=== PATIENT | female | born 1960 | race Caucasian/White ===

== ENCOUNTER 2023-07-02 22:26 | Emergency (ER) | payer OTHER ==
--- OUTSIDE RECORDS SUMMARY | 2023-07-02 22:30 | XMS REPORT | Continuity of Care Document ---
Author Name Unknown Address [address] [facility]. [address] [place] [address] [facility] thconnect Address [address] [facility] 1 [address] [place] [address] Care Team Providers Care Front Office Attendant Name Role Phone [phone] Primary Care Physician Unavailab SASHA Guzman Attending Clinician Unavailable Tomek_T Attending Clinician Unavailable MOIRA HEBERT Attending Clinician Unavailable Tomek_T Admitting Clinician Unavailable Payers Payer Name Policy Type Policy Number Effective Date Expirati on Date Source [place] POS [id number] 2015 00:00:00 [facility] (EPO) [id number] [facility] 3 (HMO) [id number] Problems Condition Name Condition Details Condition Category Status Onset Date Resolution Date Last Treatment Date Treating Clinician Comments Source Hyperlipid emia Hyperlipid emia Problem Active 2016-05 00:00: 00 [facility] Bipolar disorder Bipolar Disorder Problem Active 2016-05 00:00: 00 [facility] Lymphedema Lymphedema Problem Active 2016-05 00:00: 00 [facility] Allergies, Adverse Reactions, Alerts Allergy Name Allergy Type Status Severity Reaction(s) Onset Date Inactive Date Treating Clinician Comments Source codeine DA Active U 2018-05 0-15 00:00: 00 [facility] [place] Codeine Allergy to substanc e Active Dizziness [facility] Social History Smoking Status Start Date Stop Date Source Never Smoker [facility] Medications Ordered Medication Name Filled Medication Name Start Date Stop Date Current Medication? Ordering Clinician Indication Dosage Frequency Signature (SIG) Comments Components Source olanzapine 10 mg tablet TAKE ONE (1) TABLET EVERY DAY BY ORAL ROUTE AT BEDTIME FOR 90 DAYS. olanzapine 10 mg tablet TAKE ONE (1) TABLET EVERY DAY BY ORAL ROUTE AT BEDTIME FOR 90 DAYS. 2-17 00:00: 00 No olanzapine 10 mg tablet TAKE ONE (1) TABLET EVERY DAY BY ORAL ROUTE AT BEDTIME FOR 90 DAYS. [facility] doxycycline monohydrate 100 mg tablet Take 1 tablet twice a day by oral route for 10 days. doxycycline monohydrate 100 mg tablet Take 1 tablet twice a day by oral route for 10 days. 2018-05 0 00:00: 00 No doxycyclin e monohydrat e 100 mg tablet Take 1 tablet twice a day by oral route for 10 days. [facility] atorvastati n 10 mg tablet Take 1 tablet every day by oral route for 90 days. atorvastati n 10 mg tablet Take 1 tablet every day by oral route for 90 days. No 1 Q1D atorvastat in 10 mg tablet Take 1 tablet every day by oral route for 90 days. [facility] olanzapine 10 mg tablet Take 1 tablet every day by oral route at bedtime for 90 days. olanzapine 10 mg tablet Take 1 tablet every day by oral route at bedtime for 90 days. No 1 Q1D olanzapine 10 mg tablet Take 1 tablet every day by oral route at bedtime for 90 days. [facility] atorvastati n 10 mg tablet TAKE ONE (1) TABLET EVERY DAY BY ORAL ROUTE FOR 90 DAYS. atorvastati n 10 mg tablet TAKE ONE (1) TABLET EVERY DAY BY ORAL ROUTE FOR 90 DAYS. No atorvastat in 10 mg tablet TAKE ONE (1) TABLET EVERY DAY BY ORAL ROUTE FOR 90 DAYS. [facility] cyclobenzap rine 5 mg tablet Take 1 tablet every day by oral route at bedtime for 5 days. cyclobenzap rine 5 mg tablet Take 1 tablet every day by oral route at bedtime for 5 days. No 1 Q1D cyclobenza katelyn 5 mg tablet Take 1 tablet every day by oral route at bedtime for 5 days. [facility] olanzapine 10 mg tablet TAKE ONE (1) TABLET EVERY DAY BY ORAL ROUTE AT BEDTIME FOR 90 DAYS. olanzapine 10 mg tablet TAKE ONE (1) TABLET EVERY DAY BY ORAL ROUTE AT BEDTIME FOR 90 DAYS. No olanzapine 10 mg tablet TAKE ONE (1) TABLET EVERY DAY BY ORAL ROUTE AT BEDTIME FOR 90 DAYS. [facility] rosuvastati n 10 mg tablet Take 1 tablet every day by oral route for 90 days. rosuvastati n 10 mg tablet Take 1 tablet every day by oral route for 90 days. No 1 Q1D rosuvastat in 10 mg tablet Take 1 tablet every day by oral route for 90 days. [facility] simvastatin 20 mg tablet TAKE 1 TABLET EVERY DAY BY ORAL ROUTE FOR 90 DAYS. simvastatin 20 mg tablet TAKE 1 TABLET EVERY DAY BY ORAL ROUTE FOR 90 DAYS. No simvastati n 20 mg tablet TAKE 1 TABLET EVERY DAY BY ORAL ROUTE FOR 90 DAYS. [facility] ibuprofen 800 mg tablet ibuprofen 800 mg tablet No ibuprofen 800 mg tablet [facility] lamotrigine 100 mg tablet Take 1 tablet every day by oral route. lamotrigine 100 mg tablet Take 1 tablet every day by oral route. No 1 Q1D lamotrigin e 100 mg tablet Take 1 tablet every day by oral route. [facility] Vital Signs Vital Name Observation Time Observation Value Comments S ource BP Systolic 2023-07-01 00:00:00 158 mm[Hg] [facility] Body Weight 2023-07-01 00:00:00 3168 [oz_av] [facility] BMI (Body Mass Index) 2023-07-01 00:00:00 31 kg/m2 [facility] BP Diastolic 2023-07-01 00:00:00 113 mm[Hg] [facility] Height 2023-07-01 00:00:00 67 [in_i] [facility] BP Diastolic 2022-11-02 00:00:00 84 mm[Hg] [facility] BP Systolic 2022-11-02 00:00:00 131 mm[Hg] [facility] Body Weight 2022-11-02 00:00:00 3219 [oz_av] [facility] BP Diastolic 2022-08-30 00:00:00 83 mm[Hg] [facility] BP Systolic 2022-08-30 00:00:00 122 mm[Hg] [facility] Body Weight 2022-08-30 00:00:00 3217 [oz_av] [facility] BP Diastolic 2019-03-14 00:00:00 94 mm[Hg] [facility] Height 2019-03-14 00:00:00 65 [in_i] [facility] BMI (Body Mass Index) 2019-03-14 00:00:00 31.1 kg/m2 [facility] BP Systolic 2019-03-14 00:00:00 144 mm[Hg] [facility] Body Weight 2019-03-14 00:00:00 187 [lb_av] [facility] BP Diastolic 2019-02-27 00:00:00 72 mm[Hg] [facility] Height 2019-02-27 00:00:00 65 [in_i] [facility] BMI (Body Mass Index) 2019-02-27 00:00:00 31.6 kg/m2 [facility] BP Systolic 2019-02-27 00:00:00 138 mm[Hg] [facility] Body Weight 2019-02-27 00:00:00 190 [lb_av] [facility] Procedures Procedure Date / Time Performed Performing Clinician Source X-RAY OF CHEST 2 VIEW 2019-03-14 00:00:00 [facility] X-RAY OF CHEST 2 VIEW 2019-03-01 00:00:00 [facility] Colonoscopy 2010-05-15 00:00:00 [facility] 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) 2007-05-15 00:00:00 [facility] Hysterectomy (Total) 2007-05-15 00:00:00 [facility] Caesarean Section 1985-05-15 00:00:00 [facility] Hysterectomy [facility] Delivery [facility] Plan of Care Planned Activity Planned Date Details Comments Source Diagnostic Test Pending 2022-08-30 00:00:00 lipid panel w/ direct LDL, serum [code = lipid panel w/ direct LDL, serum] [facility] Diagnostic Test Pending 2022-08-30 00:00:00 CBC w/ auto diff [code = CBC w/ auto diff] [facility] Diagnostic Test Pending 2022-08-30 00:00:00 HbA1c (hemoglobin A1c), blood [code = HbA1c (hemoglobin A1c), blood] [facility] Diagnostic Test Pending 2022-08-30 00:00:00 CMP, serum or plasma [code = CMP, serum or plasma] [facility] Diagnostic Test Pending 2019-03-14 00:00:00 CBC w/ auto diff [code = CBC w/ auto diff] [facility] Encounters Start Date/Time End Date/Time Encounter Type Admission Type Attending [facility] Facility Care Department Encounter ID Source 2021-06-17 17:58:03 Outpatient KATERINE GARCIAS [id number] MD Nixon baird 2021-06-17 17:58:03 Outpatient KATERINE GARCIAS [id number] MD Nixon baird 2023-07-01 21:44:00 2023-07-02 00:47:00 Emergency ER CATSASHA [facility]CG[facility]AN [facility] [id number] [facility] 2023-07-01 11:57:00 2023-07-01 16:14:00 emergency [facility] [id number] 2023-07-01 00:00:00 2023-07-01 00:00:00 Outpatient Tomek_T [facility] [id number] [facility] 2023-07-01 00:00:00 2023-07-01 00:00:00 Cristopher Abdi MD: [address] [place] [address], [address], [place] [address] , Ph. [facility] [id number] [facility] 2022-11-02 00:00:00 2022-11-02 00:00:00 Outpatient Tomek_T [facility] [id number] [facility] 2022-11-02 00:00:00 2022-11-02 00:00:00 Outpatient Tomek_T [facility] [id number] [facility] 2022-11-02 00:00:00 2022-11-02 00:00:00 Moira Hebert MD: [address], [address], [place] [address] , Ph. [facility] [id number] [facility] 2022-08-30 08:47:00 2022-08-30 08:47:00 Outpatient DIANN HEBERT [facility]A [facility] [id number] [facility] 2022-08-30 00:00:00 2022-08-30 00:00:00 Outpatient Tomek_T [facility] [id number] [facility] 2022-08-30 00:00:00 2022-08-30 00:00:00 Moira Hebert MD: [address] [facility], [address], [place] [address] , Ph. [facility] [id number] [facility] 2022-08-23 00:00:00 2022-08-23 00:00:00 Outpatient Tomek_T [facility] [id number] [facility] 2022-05-10 00:00:00 2022-05-10 00:00:00 Outpatient Tomek_T [facility] [id number] [facility] 2019-03-14 00:00:00 2019-03-14 00:00:00 Russell Aleman MD: [address], [address], [place] [address] , Ph. [facility] [id number] [facility] 2019-02-27 00:00:00 2019-02-27 00:00:00 Russell Aleman MD: [address], [address], [place] [address] , Ph. [facility] [place] - [facility] [id number] [facility] e Results Test Description Test Time Test Comments Results Result Co mments Source [facility] Auto Differential panel - [id number] 03:55:00 * Test Item Value Reference Range Interpretation Comme nts white blood cell count (test code = white blood cell count) 20.4 thousand/uL 3.8-10.8 H red blood cell count (test code = red blood cell count) 4.14 million/uL 3.80-5.10 hemoglobin (test code = hemoglobin) 12.1 g/dL 11.7-15.5 hematocrit (test code = hematocrit) 35.8 % 35.0-45.0 MCV (test code = MCV) 86.5 fL 80.0-100.0 MCH (test code = MCH) 29.2 pg 27.0-33.0 MCHC (test code = MCHC) 33.8 g/dL 32.0-36.0 RDW (test code = RDW) 13.1 % 11.0-15.0 platelet count (test code = platelet count) 212 thousand/uL 140-400 MPV (test code = MPV) 10.6 fL 7.5-12.5 [facility] - [id number] 03:55:00* Test Item Value Reference Range Interpretation Comme nts absolute neutrophils (test code = absolute neutrophils) 58859 cells/uL 5461-8885 H absolute lymphocytes (test code = absolute lymphocytes) 2652 cells/uL 850-3900 absolute monocytes (test cod e = absolute monocytes) 2652 cells/uL 200-950 H absolute eosinophils (test code = absolute eosinophils) 0 cells/uL 15-500 L absolute basophils (test cod e = absolute basophils) 0 cells/uL 0-200 neutrophils (test code = neutrophils) 74.0 % lymphocytes (test code = lymphocytes) 13.0 % monocytes (test code = monocytes) 13.0 % eosinophils (test code = eosinophils) 0 % basophils (test code = basophils) 0 % note (test code = note) [facility] (THROAT) [id number] 21:16:00* Test Item Value Reference Range Interpretation Comme nts AG STREP GROUP A (THROAT) POC (test code = STREPAPOC) NEGATIVE FOR STREP A NEGATIVE - XR CHEST 2 [id number] 16:54:00Patient Name: ADITYA WHITE Unit No: [id number] EXAMS: CPT CODE: [id number] XR CHEST 2 V 12641 STUDY: Chest radiograph HISTORY: Cough, fever. COMPARISON: None. TECHNIQUE: Frontal and lateral views of the chest. SITE: R16 FINDINGS: The cardiac silhouette is unremarkable. There is no focal consolidation, pleural effusion, or pneumothorax. No acute osseous abnormalities are identified. IMPRESSION: No radiographic evidence for acute pulmonary abnormality. at 1654 Reported and signed by: Yung Billings M.D. CC: Madhuri(ED) Fernando Technologist: Nydia Nixon Fluoro Time: DAP (Gy m2): Air Kerma (mGy): Trscr Dt/Tm: 02/26/2019 (1653) by:[email or web address] Electronic Signature Date/Time: 02/26/2019 (1653)Orig Print D/T: S: 02/26/2019 (8858) Name: ADITYA WHITE [facility] Phys: Madhuri Diehl [address] : 1960 Age: 58 Sex: [place] [address] Loc: NC.ERS Exam Date: 02/26/2019 Status: PRE ER PH: FAX: PAGE 1 Signed ReportURINALYSIS [id number] 16:47:00* Test Item Value Reference Range Interpretation Comme nts UA COLOR (test code = COLU) ASHLEY YELLOW A UA APPEARANCE (test code = APPU) CLEAR CLEAR UA GLUCOSE DIPSTICK (test code = DGLUU) NEGATIVE NEGATIVE UA BILIRUBIN DIPSTICK (test code = BILU) NEGATIVE NEGATIVE UA KETONE DIPSTICK (test cod e = KETU) 1+ NEGATIVE A UA SPECIFIC GRAVITY (test code = SGU) 1.021 1.005-1.025 N UA BLOOD DIPSTICK (test code = MAYANK) 1+ NEGATIVE A UA PH DIPSTICK (test code = HELENE) 6 5.0-8.0 UA PROTEIN DIPSTICK (test code = PROU) 1+ NEGATIVE A UA UROBILINOGEN DIPSTICK (test code = URO) 2.0 EU/dL 0.1-0.2 A UA NITRITE DIPSTICK (test code = GELY) NEGATIVE NEGATIVE UA LEUKOCYTE ESTERASE DIPSTICK (test code = LEUU) NEGATIVE NEGATIVE UA WBC (test code = WBCU) 0-2 /hpf 0-3 UA RBC (test code = RBCU) 11-20 /hpf 0-3 A UA EPITHELIAL CELLS (test code = EPIU) NONE SEEN /lpf UA BACTERIA (test code = BACU) RARE /HPF NEGATIVE UA HYALINE CAST (test code = HYALU) 2-5 /lpf NONE SEEN UA MUCUS (test code = MUCU) OCCASIONAL /lpf COMPREHENSIVE METABOLIC [id number] 16:19:00* Test Item Value Reference Range Interpretation Comme nts SODIUM (test code = NA) 135 mmol/L 135-145 N POTASSIUM (test code = K) 4.0 mmol/L 3.5-5.1 N CHLORIDE (test code = CL) 103 mmol/L 98-107 N CARBON DIOXIDE (test code = CO2) 25 mmol/L 21-32 N GLUCOSE (test code = GLU) 130 mg/dL 65-99 H BLOOD UREA NITROGEN (test code = BUN) 11 mg/dL 4-23 N GLOMERULAR FILTRATION RATE (test code = GFR) >=60 max estimate ml/min 60-115 N The estimated glomerular filtration rate is computed usingpatient race, age (>18), sex, and serum creatinine. If anyof the needed data elements are missing the Laboratory cannot compute an estimation of the glomerular filtration rate. CREATININE (test code = CREAT) 1.0 mg/dL 0.6-1.5 N BUN/CREATININE RATIO (test code = BUN/CREA) 11.0 12.0-20.0 L TOTAL PROTEIN (test code = PROT) 8.4 g/dL 6.4-8.2 H ALBUMIN (test code = ALB) 4.0 g/dL 3.4-5.0 N CALCIUM (test code = CA) 9.8 mg/dL 8.5-10.1 N BILIRUBIN TOTAL (test code = BILT) 0.8 mg/dL 0.2-1.2 N SGOT/AST (test code = AST) 115 U/L 15-37 H SGPT/ALT (test code = ALT) 152 U/L 6-50 H ALKALINE PHOSPHATASE (test code = ALKP) 122 U/L 45-117 H CBC W/AUTO [id number] 15:56:00* Test Item Value Reference Range Interpretation Comme nts WHITE BLOOD CELL (test code = WBC) 16.8 10 3/uL 4.5-11.0 H RED BLOOD CELL (test code = RBC) 4.62 10 6/uL 3.50-5.50 N HEMOGLOBIN (test code = HGB) 12.9 g/dL 12.0-16.0 N HEMATOCRIT (test code = HCT) 39.8 % 37.0-55.0 N MEAN CELL VOLUME (test code = MCV) 86 fL 81-102 N MEAN CELL HGB (test code = MCH) 27.9 pg 26.0-34.0 N MEAN CELL HGB CONCENTRATION (test code = MCHC) 32.4 % 31.0-37.0 N RED CELL DISTRIBUTION WIDTH (test code = RDW) 13.1 % 11.5-14.5 N PLATELET COUNT (test code = PLT) 233 10 3/uL 150-400 N MEAN PLATELET VOLUME (test code = MPV) 10.1 fl 9.0-12.6 N NEUTROPHIL % (test code = NT%) 81.9 % 33.0-76.0 H IMMATURE GRANULOCYTE % (test code = IG%) 0.7 % 0.0-1.0 N LYMPHOCYTE % (test code = LY%) 7.1 % 14.0-56.4 L MONOCYTE % (test code = MO%) 9.8 % 0.0-12.9 N EOSINOPHIL % (test code = EO%) 0.1 % 0.0-7.0 N BASOPHIL % (test code = BA%) 0.4 % 0-2.0 N NEUTROPHIL # (test code = NT#) 13.80 10 3/uL 1.5-7.0 H IMMATURE GRANULOCYTE # (test code = IG#) 0.110 x10 3/uL 0.000-0.100 H LYMPHOCYTE # (test code = LY#) 1.20 10 3/uL 1.50-4.00 L MONOCYTE # (test code = MO#) 1.64 10 3/uL 0.20-0.80 H EOSINOPHIL # (test code = EO#) 0.01 10 3/uL 0.0-0.5 N BASOPHIL # (test code = BA#) 0.06 10 3/uL 0.0-0.1 N LACTIC ACID [id number] 15:23:00* Test Item Value Reference Range Interpretation Comme nts LACTIC ACID POC (test code = LACTP) 0.76 mmol/L 0.36-1.70 N INFLUENZA A B [id number] 15:21:00* Test Item Value Reference Range Interpretation Comme nts INFLUENZA A POC (test code = INFLAAG) negative NEGATIVE INFLUENZA B POC (test code = INFLBAG) negative NEGATIVE Notes Date/Time Note Provider Source 2019-02-26 14:59:00 [id number] 9:00 [facility] ([facility])EMERGENCY PROVIDER REPORTREPORT#:[id number] REPORT STATUS: SignedDATE:02/26/19 TIME: 1458 PATIENT: ADITYA WHITE UNIT #: [id number]#: [id number] ROOM: BED:AGE: 58 SEX: F PCP PHYS: DOES_NOT KNOWSERVICE AUTHOR: Chana Waddell NP * ALL edits or amendments must be made on the electronic/computer document * HPI-Fever GeneralInitial Greet Date/Time 02/26/19 1443 PresentationChief Complaint Fever, currently, bodyaches)( Onset Occurred Gradual Free Text HPI NotesFree Text HPI [id number] female presents to ER with fever, body aches, chills for the last 2 days. Patient was seen in urgent care and had a negative flu swab was sent to the ED ER for evaluation. Patient does endorse a cough, congestion. Past Medical History - AdultStated Complaint BODYACHES/FEVERAllergiesCoded Allergies:codeine (rash 02/26/19) Physical Exam Vital SignsVital SignsFirst Documented: Result Date Time Pulse Ox 99 02/26 1453 B/P 135/106 02/26 1453 B/P Mean 115 02/26 1453 O2 Delivery Room air 02/26 1453 Temp 38.2 02/26 1453 Pulse 129 02/26 1453 Resp 17 02/26 1453 Last Documented: Result Date Time Pulse Ox 98 02/27 2108 B/P 129/75 02/27 2108 B/P Mean 93 02/27 2108 O2 Delivery Room air 02/27 2108 Temp 36.9 02/27 2108 Pulse 94 02/27 2108 Resp 16 02/27 2108 Review of Vital Signs Reviewed Focused PEGeneral/Const General/Const Awake, Alert, No acute distress, Well appearing, Well developed, Well hydrated, Well nourished, Cooperative, Not toxic appearingMS Head Head Atraumatic, NormocephalicEyes Eyes Atraumatic, PERRL, EOMI, No nystagmusEars/Nose/Throat Ears/Nose/Throat Atraumatic, Airway patent, Mucous membranes moist, Pharynx NL, No peritonsillar abscess, No pooling of secretions, No trismusMS Neck Neck Atraumatic, Supple, No meningismus, Full range of motion, No adenopathy,No swellingResp/Chest Respiratory/Chest Atraumatic, Breath sounds NL, Breath sounds = bilat, No respiratory distress, No rales, No rhonchi, No wheezing, No retractionsCardiovascular Cardiovascular Heart rate NL, Regular rhythm, Heart sounds NLAbdomen/GI Abdomen/GI Atraumatic, Soft, Non-tender, No guarding, No reboundMS Back Back Atraumatic, Inspection NL, Full range of motion, Painless range of motion, Non-tenderSkin Skin Atraumatic, Color NL, Warm, Dry, IntactNeurologic Neurologic Oriented X3, Speech NL, No motor deficits, No sensory deficits, CNII - XII intact Interpretation Diagnostics Lab Results InterpretationResultsLaboratory Tests 02/26/19 1500:[Embedded Image Not Available]Laboratory Tests: 02/26 1458 Other Body Source POC Nasal Influenza A (NEGATIVE) negative POC Nasal Influenza B (NEGATIVE) negative Urines Urine Color (YELLOW) ASHLEY H Urine Appearance (CLEAR) CLEAR Urine pH (5.0 - 8.0) 6 Ur Specific [place] (1.005 - 1.025) 1.021 Urine Protein (NEGATIVE) 1+ H Urine Glucose (UA) (NEGATIVE) NEGATIVE Urine Ketones (NEGATIVE) 1+ H Urine Blood (NEGATIVE) 1+ H Urine Nitrite (NEGATIVE) NEGATIVE Urine Bilirubin (NEGATIVE) NEGATIVE Urine Urobilinogen (0.1 - 0.2 EU/dL) 2.0 H Ur Leukocyte Esterase (NEGATIVE) NEGATIVE Urine RBC (0 - 3 /hpf) 11-20 H Urine WBC (0 - 3 /hpf) 0-2 Ur Epithelial Cells (/lpf) NONE SEEN Urine Bacteria (NEGATIVE /HPF) RARE Hyaline Casts (NONE SEEN /lpf) 2-5 Urine Mucus (/lpf) OCCASIONAL 02/26 02/26 1500 1514 Chemistry Sodium (135 - 145 mmol/L) 135 Potassium (3.5 - 5.1 mmol/L) 4.0 Chloride (98 - 107 mmol/L) 103 Carbon Dioxide (21 - 32 mmol/L) 25 BUN (4 - 23 mg/dL) 11 Creatinine (0.6 - 1.5 mg/dL) 1.0 Glomerular Filtr Rate (60 - 115 ml/min) >=60 max estimate BUN/Creatinine Ratio (12.0 - 20.0) 11.0 L Glucose (65 - 99 mg/dL) 130 H POC Lactic Acid (0.36 - 1.70 mmol/L) 0.76 Calcium (8.5 - 10.1 mg/dL) 9.8 Total Bilirubin (0.2 - 1.2 mg/dL) 0.8 AST (15 - 37 U/L) 115 H ALT (6 - 50 U/L) 152 H Total Alk Phosphatase (45 - 117 U/L) 122 H Total Protein (6.4 - 8.2 g/dL) 8.4 H Albumin (3.4 - 5.0 g/dL) 4.0 Hematology WBC (4.5 - 11.0 10 3/uL) 16.8 H RBC (3.50 - 5.50 10 6/uL) 4.62 Hgb (12.0 - 16.0 g/dL) 12.9 Hct (37.0 - 55.0 %) 39.8 MCV (81 - 102 fL) 86 MCH (26.0 - 34.0 pg) 27.9 MCHC (31.0 - 37.0 %) 32.4 RDW (11.5 - 14.5 %) 13.1 Plt Count (150 - 400 10 3/uL) 233 MPV (9.0 - 12.6 fl) 10.1 Neut % (Auto) (33.0 - 76.0 %) 81.9 H Lymph % (Auto) (14.0 - 56.4 %) 7.1 L [place] % (Auto) (0.0 - 12.9 %) 9.8 Eos % (Auto) (0.0 - 7.0 %) 0.1 Baso % (Auto) (0 - 2.0 %) 0.4 Neut # (Auto) (1.5 - 7.0 10 3/uL) 13.80 H Lymph # (Auto) (1.50 - 4.00 10 3/uL) 1.20 L [place] # (Auto) (0.20 - 0.80 10 3/uL) 1.64 H Eos # (Auto) (0.0 - 0.5 10 3/uL) 0.01 Baso # (Auto) (0.0 - 0.1 10 3/uL) 0.06 Immature Gran % (0.0 - 1.0 %) 0.7 02/26 2100 Serology Group A Strep Screen (NEGATIVE) NEGATIVE FOR STREP A Microbiology: Date/Time Procedure - Status Source Growth 02/26 2116 Group A Streptococcus Culture - ORD THROAT 02/26 1515 Blood Culture - RECD BLOOD 02/26 1500 Blood Culture - RECD BLOOD 02/26 1458 Group A Streptococcus Screen (EDGARDO) - ORD THROAT Recent Impressions:RADIOLOGY - XR CHEST 2 V 02/26 1530 Report Impression - Status: SIGNED Entered: 02/26/2019 1658 IMPRESSION: No radiographic evidence for acute pulmonary abnormality. Impression By: VivienRHJosse - Yung Billings M.D. Re-Evaluation MDM Free Text MDM NotesFree Text MDM NotesPt staffed with Dr. Strong Discussed with pt chest xray nothing acute Urine shows no infection Iv fluids and ibuprofen in er fever resolved HR decreased flu swab negative Re-Evaluation/Progress Fever Adult MDM NoteThe patient is resting comfortably and feels better, is alert and in no distress. On re-examination the patient does not appear toxic and has no meningeal signs, and there is no intractable vomiting, no respiratory distress and no apparent pain. Based on the history, exam, diagnostic testing (if any) and reassessment, the patient has no signs of meningitis, significant pneumonia,pyelonephritis, systemic immune response syndrome, sepsis or other acute seriousbacterial infections, or other significant pathology to warrant further testing,continued ED treatment, admission or specialist evaluation. The patient's vital signs have been stable. The patient's condition is stable and is appropriate fordischarge. The patient or caregiver will pursue further outpatient evaluation with the primary care physician or other designated or consulting physician as indicated in the discharge instructions. ED CourseMedication(s) OrderedMedication(s) Ordered:Central Nervous System Agents Sig/Westley Start time Last Medication Dose Route Stop Time Status Admin Ibuprofen 800 MG X1ED STA 02/26 1458 DC PO 02/26 145 Electrolytic, Caloric, And Emily Sig/[place] Start time Last Medication Dose Route Stop Time Status Admin Sodium Chloride 1,000 ML X1ED STA 02/26 1458 DC 02/26 IV 02/26 1557 1935 Patient Discharge Departure Vital Signs/ConditionVital SignsFirst Documented: Result Date Time Pulse Ox 99 02/26 1453 B/P 135/106 02/26 1453 B/P Mean 115 02/26 1453 O2 Delivery Room air 02/26 1453 Temp 38.2 02/26 1453 Pulse 129 02/26 145 Resp 17 02/26 1453 Last Documented: Result Date Time Pulse Ox 98 02/27 2108 B/P 129/75 02/27 2108 B/P Mean 93 02/27 2108 O2 Delivery Room air 02/27 2108 Temp 36.9 02/27 2108 Pulse 94 02/27 2108 Resp 16 02/27 2108 All vital signs available at the time of this entry have been reviewed. Condition Improved, Stable Clinical ImpressionClinical ImpressionPrimary Impression: Viral illness Disposition DecisionDischarge )( Discharged to Home Yes )( Time 2106 )( Date 02/26/19 Discharge/Care PlanCounseled Regarding Diagnosis, Lab results, Prescriptions, Need for follow-up, When to return to EDPrescriptionsibuprofenPrescriptions Reviewed Risks, Benefits Discharge NoteI have spoken with the patient and/or caregivers. I have explained the patient'scondition, diagnoses and treatment plan based on the information available to meat this time. I have answered the patient's and/or caregiver's questions and addressed any concerns. The patient and/or caregivers have as good an understanding of the patient's diagnosis, condition and treatment plan as can beexpected at this point. The vital signs have been stable. The patient's condition is stable and appropriate for discharge from the emergency department. The patient will pursue further outpatient evaluation with the primary care physician or other designated or consulting physician as outlined in the discharge instructions. The patient and/or caregivers are agreeable to this planof care and follow-up instructions have been explained in detail. The patient and/or caregivers have received these instructions in written format and have expressed an understanding of the discharge instructions. The patient and/or caregivers are aware that any significant change in condition or worsening of symptoms should prompt an immediate return to this or the closest emergency department or a call to 911. at 2148RPT #:[id number] OF REPORTEDEmergency department [id number]:59:[id number] ailable for patient [id number]:49:21 [facility] 2019-02-26 14:59:00 [id number] 9:00 [facility] ([facility])EMERGENCY PROVIDER REPORTREPORT#:[id number] REPORT STATUS: SignedDATE:02/26/19 TIME: 1458 PATIENT: ADITYA WHITE UNIT #: [id number]#: [id number] ROOM: BED:AGE: 58 SEX: F PCP PHYS: DOES_NOT KNOWSERVICE AUTHOR: Chana Waddell NP * ALL edits or amendments must be made on the electronic/computer document * Chana Waddell 02/26/19 1459:HPI-Fever PresentationChief Complaint Fever, currently, bodyaches)( Onset Occurred Gradual Free Text HPI NotesFree Text HPI [id number] female presents to ER with fever, body aches, chills for the last 2 days. Patient was seen in urgent care and had a negative flu swab was sent to the ED ER for evaluation. Patient does endorse a cough, congestion. Past Medical History - AdultStated Complaint BODYACHES/FEVERAllergiesCoded Allergies:codeine (rash 02/26/19) Physical Exam Vital SignsVital SignsFirst Documented: Result Date Time Pulse Ox 99 02/26 1453 B/P 135/106 02/26 1453 B/P Mean 115 02/26 1453 O2 Delivery Room air 02/26 1453 Temp 38.2 02/26 1453 Pulse 129 02/26 1453 Resp 17 02/26 1453 Last Documented: Result Date Time Pulse Ox 98 02/27 2108 B/P 129/75 02/27 2108 B/P Mean 93 02/27 2108 O2 Delivery Room air 02/27 2108 Temp 36.9 02/27 2108 Pulse 94 02/27 2108 Resp 16 02/27 2108 Review of Vital Signs Reviewed Focused PEGeneral/Const General/Const Awake, Alert, No acute distress, Well appearing, Well developed, Well hydrated, Well nourished, Cooperative, Not toxic appearingMS Head Head Atraumatic, NormocephalicEyes Eyes Atraumatic, PERRL, EOMI, No nystagmusEars/Nose/Throat Ears/Nose/Throat Atraumatic, Airway patent, Mucous membranes moist, Pharynx NL, No peritonsillar abscess, No pooling of secretions, No trismusMS Neck Neck Atraumatic, Supple, No meningismus, Full range of motion, No adenopathy,No swellingResp/Chest Respiratory/Chest Atraumatic, Breath sounds NL, Breath sounds = bilat, No respiratory distress, No rales, No rhonchi, No wheezing, No retractionsCardiovascular Cardiovascular Heart rate NL, Regular rhythm, Heart sounds NLAbdomen/GI Abdomen/GI Atraumatic, Soft, Non-tender, No guarding, No reboundMS Back Back Atraumatic, Inspection NL, Full range of motion, Painless range of motion, Non-tenderSkin Skin Atraumatic, Color NL, Warm, Dry, IntactNeurologic Neurologic Oriented X3, Speech NL, No motor deficits, No sensory deficits, CNII - XII intact Interpretation Diagnostics Lab Results InterpretationResultsLaboratory Tests 02/26/19 1500:[Embedded Image Not Available]Laboratory Tests: 02/26 02/26 1456 1458 Other Body Source POC Nasal Influenza A (NEGATIVE) negative POC Nasal Influenza B (NEGATIVE) negative Urines Urine Color (YELLOW) ASHLEY H Urine Appearance (CLEAR) CLEAR Urine pH (5.0 - 8.0) 6 Ur Specific [place] (1.005 - 1.025) 1.021 Urine Protein (NEGATIVE) 1+ H Urine Glucose (UA) (NEGATIVE) NEGATIVE Urine Ketones (NEGATIVE) 1+ H Urine Blood (NEGATIVE) 1+ H Urine Nitrite (NEGATIVE) NEGATIVE Urine Bilirubin (NEGATIVE) NEGATIVE Urine Urobilinogen (0.1 - 0.2 EU/dL) 2.0 H Ur Leukocyte Esterase (NEGATIVE) NEGATIVE Urine RBC (0 - 3 /hpf) 11-20 H Urine WBC (0 - 3 /hpf) 0-2 Ur Epithelial Cells (/lpf) NONE SEEN Urine Bacteria (NEGATIVE /HPF) RARE Hyaline Casts (NONE SEEN /lpf) 2-5 Urine Mucus (/lpf) OCCASIONAL 02/26 02/26 1500 1514 Chemistry Sodium (135 - 145 mmol/L) 135 Potassium (3.5 - 5.1 mmol/L) 4.0 Chloride (98 - 107 mmol/L) 103 Carbon Dioxide (21 - 32 mmol/L) 25 BUN (4 - 23 mg/dL) 11 Creatinine (0.6 - 1.5 mg/dL) 1.0 Glomerular Filtr Rate (60 - 115 ml/min) >=60 max estimate BUN/Creatinine Ratio (12.0 - 20.0) 11.0 L Glucose (65 - 99 mg/dL) 130 H POC Lactic Acid (0.36 - 1.70 mmol/L) 0.76 Calcium (8.5 - 10.1 mg/dL) 9.8 Total Bilirubin (0.2 - 1.2 mg/dL) 0.8 AST (15 - 37 U/L) 115 H ALT (6 - 50 U/L) 152 H Total Alk Phosphatase (45 - 117 U/L) 122 H Total Protein (6.4 - 8.2 g/dL) 8.4 H Albumin (3.4 - 5.0 g/dL) 4.0 Hematology WBC (4.5 - 11.0 10 3/uL) 16.8 H RBC (3.50 - 5.50 10 6/uL) 4.62 Hgb (12.0 - 16.0 g/dL) 12.9 Hct (37.0 - 55.0 %) 39.8 MCV (81 - 102 fL) 86 MCH (26.0 - 34.0 pg) 27.9 MCHC (31.0 - 37.0 %) 32.4 RDW (11.5 - 14.5 %) 13.1 Plt Count (150 - 400 10 3/uL) 233 MPV (9.0 - 12.6 fl) 10.1 Neut % (Auto) (33.0 - 76.0 %) 81.9 H Lymph % (Auto) (14.0 - 56.4 %) 7.1 L [place] % (Auto) (0.0 - 12.9 %) 9.8 Eos % (Auto) (0.0 - 7.0 %) 0.1 Baso % (Auto) (0 - 2.0 %) 0.4 Neut # (Auto) (1.5 - 7.0 10 3/uL) 13.80 H Lymph # (Auto) (1.50 - 4.00 10 3/uL) 1.20 L [place] # (Auto) (0.20 - 0.80 10 3/uL) 1.64 H Eos # (Auto) (0.0 - 0.5 10 3/uL) 0.01 Baso # (Auto) (0.0 - 0.1 10 3/uL) 0.06 Immature Gran % (0.0 - 1.0 %) 0.7 02/26 2100 Serology Group A Strep Screen (NEGATIVE) NEGATIVE FOR STREP A Microbiology: Date/Time Procedure - Status Source Growth 02/27 2116 Group A Streptococcus Culture - ORD THROAT 02/26 1515 Blood Culture - RECD BLOOD 02/26 1500 Blood Culture - RECD BLOOD 02/26 1458 Group A Streptococcus Screen (EDGARDO) - ORD THROAT Recent Impressions:RADIOLOGY - XR CHEST 2 V 02/26 1530 Report Impression - Status: SIGNED Entered: 02/26/2019 1658 IMPRESSION: No radiographic evidence for acute pulmonary abnormality. Impression By: VivienRHJosse Billings M.D. Re-Evaluation MDM Free Text MDM NotesFree Text MDM NotesPt staffed with Dr. Strong Discussed with pt chest xray nothing acute Urine shows no infection Iv fluids and ibuprofen in er fever resolved HR decreased flu swab negative Re-Evaluation/Progress Fever Adult MDM NoteThe patient is resting comfortably and feels better, is alert and in no distress. On re-examination the patient does not appear toxic and has no meningeal signs, and there is no intractable vomiting, no respiratory distress and no apparent pain. Based on the history, exam, diagnostic testing (if any) and reassessment, the patient has no signs of meningitis, significant pneumonia,pyelonephritis, systemic immune response syndrome, sepsis or other acute seriousbacterial infections, or other significant pathology to warrant further testing,continued ED treatment, admission or specialist evaluation. The patient's vital signs have been stable. The patient's condition is stable and is appropriate fordischarge. The patient or caregiver will pursue further outpatient evaluation with the primary care physician or other designated or consulting physician as indicated in the discharge instructions. ED CourseMedication(s) OrderedMedication(s) Ordered:Central Nervous System Agents Sig/Westley Start time Last Medication Dose Route Stop Time Status Admin Ibuprofen 800 MG X1ED STA 02/26 1458 DC PO 02/26 1459 Electrolytic, Caloric, And Emily Sig/Westley Start time Last Medication Dose Route Stop Time Status Admin Sodium Chloride 1,000 ML X1ED STA 02/26 1458 DC 10 IV 02/26 1557 1935 Patient Discharge Departure Vital Signs/ConditionVital SignsFirst Documented: Result Date Time Pulse Ox 99 02/26 1453 B/P 135/106 02/26 1453 B/P Mean 115 02/26 1453 O2 Delivery Room air 02/26 1453 Temp 38.2 02/26 1453 Pulse 129 02/26 1453 Resp 17 02/26 1453 Last Documented: Result Date Time Pulse Ox 98 02/27 2108 B/P 129/75 02/27 2108 B/P Mean 93 02/27 2108 O2 Delivery Room air 02/27 2108 Temp 36.9 02/27 2108 Pulse 94 02/27 2108 Resp 16 02/27 2108 All vital signs available at the time of this entry have been reviewed. Condition Improved, Stable Clinical ImpressionClinical ImpressionPrimary Impression: Viral illness Disposition DecisionDischarge )( Discharged to Home Yes )( Time 2106 )( Date 02/26/19 Discharge/Care PlanCounseled Regarding Diagnosis, Lab results, Prescriptions, Need for follow-up, When to return to EDPrescriptionsibuprofenPrescriptions Reviewed Risks, Benefits Discharge NoteI have spoken with the patient and/or caregivers. I have explained the patient'scondition, diagnoses and treatment plan based on the information available to meat this time. I have answered the patient's and/or caregiver's questions and addressed any concerns. The patient and/or caregivers have as good an understanding of the patient's diagnosis, condition and treatment plan as can beexpected at this point. The vital signs have been stable. The patient's condition is stable and appropriate for discharge from the emergency department. The patient will pursue further outpatient evaluation with the primary care physician or other designated or consulting physician as outlined in the discharge instructions. The patient and/or caregivers are agreeable to this planof care and follow-up instructions have been explained in detail. The patient and/or caregivers have received these instructions in written format and have expressed an understanding of the discharge instructions. The patient and/or caregivers are aware that any significant change in condition or worsening of symptoms should prompt an immediate return to this or the closest emergency department or a call to 911. Crystal King 02/26/19 2200:[facility]-Fever [facility]Initial [facility] 02/26/19 1443 Patient Discharge Departure Supervising Physician Note MidLv/Doc Saw Pt 1I have seen and evaluated this patient and agree with the nurse practitioner or physician behavioral health assistant's documentation and assessment. Documentation of one or moreelements of my assessment are included in the medical record. I personally evaluated this patient [id number] in the emergency department. She is nontoxic but appears fatigued. Saltation bilaterally. Symptoms are consistent with viral illness, possible flu. Flu swab negative but still flulike symptoms. At this time antibiotics are not indicated. Vital signs are stable and her lactic acid is normal. I do not suspect sepsis. Care provided for this patient in conjunction with the nurse practitioner. History and plan discussed with the nurse practitioner. All results reviewed and discussed wtih the UNIX ENGINEER. discharge plan was discussed with the nurse practitioner. I agree withthe plan. at 1148 at 2201RPT #:[id number] OF REPORTEDPeacehealth Southwest [facility] Center department [id number]:59:[id number] ailable for patient [id number]:02:02 HCANC
[2023-07-03 00:13] LABS: Specific Gravity < 1.005 (1.005-1.030); Urine Bilirubin NEGATIVE (Negative); Urine Blood Negative (Negative); Urine Clarity Clear (Clear); Urine Color Colorless (Yellow); Urine Glucose NEGATIVE (Negative); Urine Ketones NEGATIVE (Negative); Urine Microscopic Reflex YN NO UMIC; Urine Nitrite NEGATIVE (Negative); Urine Protein NEGATIVE (Negative); Urine Urobilinogen Normal (Normal); Urine pH 6.5 (5.0-7.0)
[2023-07-03 00:22] LABS: Absolute Eosinophils 0.1 K/uL (0-0.5); Absolute Lymphocytes (CBC) 2.7 K/uL (0.7-4.9); Absolute Monocytes 0.6 K/uL (0.1-1.3); Absolute Neutrophil 3.7 K/uL (1.8-8.0); Basophils % 0.4 % (0-1.3); Eosinophils % 1.9 % (0-4.4); Hematocrit 39.6 % (36.0-45.0); Hemoglobin 13.6 g/dL (12.0-15.0); Lymphocytes % 37.5 % (15.3-44.8); MCH 30.1 pg (27.0-35.0); MCHC 34.4 g/dL (32.0-36.0); MCV 87.7 fL (80-100); MPV 8.5 fL (7.6-11.3); Monocytes % 8.8 % (3.3-12.3); Neutrophils % 51.4 % (41.7-73.7); Nucleated Red Blood Cells % 0.4 % (0-0); Platelets 200 thou/uL (152-406); RBC Red Blood Cell Count 4.51 M/uL (3.86-4.86); Red Cell Distribution Width 13.4 % (12.1-15.2)
[2023-07-03] MEDS ORDERED: DICYCLOMINE HCL 10 MG CAP ONE (00:22)
[2023-07-03] MEDS ORDERED: METOCLOPRAMIDE 5 MG TAB ONE (00:23)
[2023-07-03 00:32] LABS: Albumin 3.7 g/dL (3.4-5.0); Albumin/Globulin Ratio 1.1 (1.1-1.8); Anion Gap 8.8 mEq/L (5.0-15.0); Bilirubin Total 0.6 mg/dL (0.2-1.0); Globulin 3.5 g/dL (2.3-3.5); Potassium 3.8 mEq/L (3.5-5.1); Protein, Total 7.2 g/dL (6.4-8.2)
--- NOTE | 2023-07-03 00:48 | ER ---
Nurse's Notes [facility] Name: Annmarie Michael Age: 63 yrs Sex: Female : 1960 Arrival Date: 07/02/2023 Time: 22:26 Bed 2 Private MD: Diagnosis: Slow transit constipation;Obstipation Presentation: 07/02 22:43 Chief complaint: Patient states: Pt states she was diagnosed with constipation by CT tl4 scan at [facility] yesterday x 2 visits. Pt states she had multiple meds including an enema, colace, and magnesium citrate. Pt states she has only passed a small amount of stool. Pt states she feels worse and has pain all over her body. Pt states lab work was all normal. Coronavirus screen: At this time, the client does not indicate any symptoms associated with coronavirus-19. Ebola Screen: No symptoms or risks identified at this time. Initial Sepsis Screen: Does the patient meet any 2 criteria? No. Patient's initial sepsis screen is negative. Does the patient have a suspected source of infection? No. Patient's initial sepsis screen is negative. Risk Assessment: Do you want to hurt yourself or someone else? Patient reports no desire to harm self or others. Onset of symptoms was June 30, 2023. 22:43 Method Of Arrival: Ambulatory tl4 22:43 Acuity: JULIEN 3 tl4 Triage Assessment: 22:48 General: Appears uncomfortable, Behavior is calm, cooperative. Pain: Complains of pain tl4 in abdomen. EENT: No deficits noted. No signs and/or symptoms were reported regarding the EENT system. Neuro: No deficits noted. Cardiovascular: No deficits noted. Respiratory: No deficits noted. GI: Reports lower abdominal pain, constipation. : No deficits noted. No signs and/or symptoms were reported regarding the genitourinary system. Derm: No deficits noted. No signs and/or symptoms reported regarding the dermatologic system. Historical: - Allergies: 22:47 No Known Allergies; tl4 - Home Meds: 22:47 olanzapine oral [Active]; tl4 - PMHx: 22:47 Uterine cancer; lymphedema; tl4 - Immunization history:: Adult Immunizations unknown. - Social history:: Smoking status: Patient denies any tobacco usage or history of. - Family history:: not pertinent. Screenin:19 [facility] ED Fall Risk Assessment (Adult) History of falling in the last 3 months, km8 including since admission No falls in past 3 months (0 pts) Confusion or Disorientation No (0 pts) Intoxicated or Sedated No (0 pts) Impaired Gait No (0 pts) Mobility Assist Device Used No (0 pt) Altered Elimination No (0 pt) Score/Fall Risk Level 0 - 2 = Low Risk Oriented to surroundings, Maintained a safe environment, Educated pt \T\ family on fall prevention, incl call for assistance when getting out of bed, Assessed \T\ reinforced patient's understanding of fall precautions. Abuse screen: Denies threats or abuse. Denies injuries from another. Nutritional screening: No deficits noted. Tuberculosis screening: No symptoms or risk factors identified. Assessment: 23:19 General: Appears in no apparent distress. uncomfortable, Behavior is calm, cooperative, km8 appropriate for age. Pain: Complains of pain in abdomen Pain currently is 9 out of 10 on a pain scale. Neuro: Level of Consciousness is awake, alert, obeys commands, Oriented to person, place, time, situation. Cardiovascular: Denies chest pain, shortness of breath, Capillary refill < 3 seconds Patient's skin is warm and dry. Respiratory: Airway is patent Respiratory effort is even, unlabored, Respiratory pattern is regular, symmetrical. GI: Abdomen is non-distended, Bowel sounds present X 4 quads. Abd is soft Reports lower abdominal pain, constipation. : No signs and/or symptoms were reported regarding the genitourinary system. EENT: No signs and/or symptoms were reported regarding the EENT system. Derm: No signs and/or symptoms reported regarding the dermatologic system. Skin is intact, is healthy with good turgor, Skin is dry, Skin is pink, warm \T\ dry. normal, Skin temperature is warm. Musculoskeletal: No signs and/or symptoms reported regarding the musculoskeletal system. Circulation, motion, and sensation intact. Range of motion: intact in all extremities. 07/03 00:29 Reassessment: Patient appears in no apparent distress at this time. No changes from km8 previously documented assessment. Patient and/or family updated on plan of care and expected duration. Pain level reassessed. Patient is alert, oriented x 3, equal unlabored respirations, skin warm/dry/pink. Vital Signs: 07/02 22:43 BP 145 / 86; Pulse 74; Resp 16; Temp 98.5(O); Pulse Ox 100% on R/A; Weight 88.45 kg; tl4 Height 5 ft. 7 in. ; Pain 9/10; 23:00 BP 139 / 83; Pulse 75; Resp 16; Pulse Ox 100% on R/A; km8 07/03 00:00 BP 133 / 84; Pulse 59; Resp 16; Pulse Ox 100% on R/A; km8 00:30 BP 137 / 78; Pulse 57; Resp 16; Pulse Ox 100% on R/A; km8 07/02 22:43 Body Mass Index 30.54 (88.45 kg, 170.18 cm) tl4 02 22:43 Pain Scale: Adult tl4 [place] Coma Score: 07/02 23:19 Eye Response: spontaneous(4). Motor Response: obeys commands(6). Verbal Response: km8 oriented(5). Total: 15. ED Course: 22:31 Patient arrived in ED. jj6 22:38 Ector Cervantes MD is Attending Physician. sp4 22:47 Triage completed. tl4 22:49 Arm band placed on right wrist. tl4 23:19 Valentina Joy, SURYA is Primary Nurse. km8 23:19 Patient has correct armband on for positive identification. Placed in gown. Bed in low km8 position. Call light in reach. Side rails up X2. Pulse ox on. NIBP on. 23:19 No provider procedures requiring assistance completed. Served as a steel finisher during km8 rectal exam. Patient maintains SpO2 saturation greater than 95% on room air. 23:34 CBC with Diff Sent. km8 23:34 CMP Sent. km8 23:34 Lipase Sent. km8 23:34 Inserted saline lock: 22 gauge in left antecubital area, using aseptic technique. Blood km8 collected. 23:39 Abdomen Acute Series XRAY In Process Unspecified. EDMS 23:57 Urinalysis w/ reflexes Sent. km8 23:57 Urine collected: clean catch specimen, clear. jw7 07/03 00:46 Daniel Martínez MD is Referral Physician. sp4 00:54 Provided Education on: d/c teaching. km8 00:54 IV discontinued, intact, bleeding controlled, No redness/swelling at site. Pressure km8 dressing applied. Administered Medications: : Drug: Dicyclomine PO 20 mg PO once Route: PO; :55 Follow up: Response: No adverse reaction : Drug: MetoCLOPramide PO 10 mg PO once Route: PO; :55 Follow up: Response: No adverse reaction Medication: 07/02 23:19 VIS not applicable for this client. km8 Outcome: 07/03 00:48 Discharge ordered by . tee 00:54 Discharged to home ambulatory, with significant other, km:54 Condition: good 00:54 Discharge instructions given to patient, significant other, Instructed on discharge instructions, follow up and referral plans. medication usage, Demonstrated understanding of instructions, follow-up care, medications, Prescriptions given X 1, 01:06 Patient left the ED. km8 Signatures: Dispatcher [employer] EDMS Janelle Ribera jj6 Vy Youngblood RN RN jw7 Ector Cervantes MD MD sp4 Valentina Joy RN RN km8 Stephan Martinez RN RN tl4
--- NOTE | 2023-07-03 00:48 | EDPHYS ---
Physician Documentation [facility] Name: Annmarie Michael Age: 63 yrs Sex: Female : 1960 Arrival Date: 07/02/2023 Time: 22:26 Bed 2 Private MD: ED Physician Ector Cervantes HPI: 07/02 22:38 This 63 yrs old Female presents to ER via Unassigned with complaints of Constipation, sp4 Abdominal Pain. 07/03 00:20 Patient presents with complaint of abdominal pain and constipation, . sp4 00:21 Patient states her last significant bowel movement was on 6 days ago. Patient visited [address] on 07/01/2023 and was prescribed Colace and magnesium citrate. Patient had CT abdomen pelvis that has revealed large amount of stool throughout the colon extending to the rectum suspicious for constipation. No mechanical bowel obstruction or extraluminal bowel gas. No evidence of appendicitis diverticulitis or chronic inflammatory bowel disease, no evidence of mechanical small bowel obstruction or extraluminal bowel gas. No urinary system obstruction no evidence of pyelonephritis. Prescribed medications did not help. Although patient was also prescribed lactulose and azithromycin . those did not help. Patient presents here now with worsening discomfort in her abdomen and persistent constipation... Historical: - Allergies: 07/02 22:47 No Known Allergies; tl4 - Home Meds: 22:47 olanzapine oral [Active]; tl4 - PMHx: 22:47 Uterine cancer; lymphedema; tl4 - Immunization history:: Adult Immunizations unknown. - Social history:: Smoking status: Patient denies any tobacco usage or history of. - Family history:: not pertinent. ROS: 07/03 00:23 Constitutional: Negative for fever, chills, and weight loss, positive diffuse abdominal sp4 discomfort and constipation . All other systems are negative, Exam: 07/02 23:19 Abdomen/GI: Rectal exam reveals no sign of action. Overall normal exam. No bleeding, sp4 no melena, no mass, no hemorrhoid , 07/03 00:23 Constitutional: This is a well developed, well nourished patient who is awake, alert, sp4 and in no acute distress. Head/Face: Normocephalic, atraumatic. Eyes: Pupils equal round and reactive to light, extra-ocular motions intact. Lids and lashes normal. Conjunctiva and sclera are not injected. Cornea within normal limits. Periorbital areas with no swelling, redness, or edema. ENT: Nares patent. No nasal discharge, no septal abnormalities noted. Tympanic membranes are normal and external auditory canals are clear. Oropharynx with no redness, swelling, or masses, exudates, or evidence of obstruction, uvula midline. Mucous membranes moist. Neck: Trachea midline, no thyromegaly or masses palpated, and no cervical lymphadenopathy. Supple, full range of motion without nuchal rigidity, or vertebral point tenderness. Chest/axilla: Normal chest wall appearance and motion. Nontender with no deformity. No lesions are appreciated. Cardiovascular: Regular rate and rhythm with a normal S1 and S2. No gallops, murmurs, or rubs. Normal PMI, no JVD. No pulse deficits. Respiratory: Lungs have equal breath sounds bilaterally, clear to auscultation and percussion. No rales, rhonchi or wheezes noted. No increased work of breathing, no retractions or nasal flaring. Abdomen/GI: Soft, with normal bowel sounds. No distension or tympany. No guarding or rebound. No evidence of tenderness throughout. Back: No spinal tenderness. No costovertebral tenderness. Skin: Warm, dry with normal turgor. Normal color with no rashes, no lesions, and no evidence of cellulitis. MS/ Extremity: Pulses equal, no cyanosis. Neurovascular intact. Full, normal range of motion. Neuro: Awake and alert, GCS 15, oriented to person, place, time, and situation. Cranial nerves II-XII grossly intact. Motor strength 5/5 in all extremities. Sensory grossly intact. Psych: Awake, alert, with orientation to person, place and time. Behavior, mood, and affect are within normal limits Vital Signs: 07/02 22:43 BP 145 / 86; Pulse 74; Resp 16; Temp 98.5(O); Pulse Ox 100% on R/A; Weight 88.45 kg; tl4 Height 5 ft. 7 in. ; Pain 9/10; 23:00 BP 139 / 83; Pulse 75; Resp 16; Pulse Ox 100% on R/A; km8 07/03 00:00 BP 133 / 84; Pulse 59; Resp 16; Pulse Ox 100% on R/A; km8 00:30 BP 137 / 78; Pulse 57; Resp 16; Pulse Ox 100% on R/A; km8 18 22:43 Body Mass Index 30.54 (88.45 kg, 170.18 cm) tl4 02 22:43 Pain Scale: Adult tl4 George Coma Score: 07/02 23:19 Eye Response: spontaneous(4). Motor Response: obeys commands(6). Verbal Response: km8 oriented(5). Total: 15. MDM: 22:39 Patient medically screened. sp4 07/03 00:15 Data reviewed: vital signs, nurses notes. sp4 00:15 ED course: 63 years Female CONSTIPATION TECHNICAL DATA: Three x-ray images of the chest sp4 and abdomen were performed including a PA radiograph of the chest as well as supine and upright views of the abdomen. This study was performed on 07/02/2023 at 11:22 PM. Comparison: Abdomen x-ray performed on 07/01/2023 and chest x-ray performed on 07/01/[address] abdomen and pelvis performed on 07/01/2023. FINDINGS: The lungs are well expanded. The cardiac silhouette is within normal limits. There is no focal consolidation, pleural effusion or pneumothorax. The costophrenic sulci are clear. The bowel gas pattern is nonspecific and nonobstructive. There is moderate fecal residue scattered throughout the colon. There are extensive postsurgical changes throughout the lower abdomen and pelvis. There is no evidence of free air or significant air-fluid levels. No pathologic abdominal calcifications are identified. No focal soft tissue abnormalities are seen. IMPRESSION: 1. No evidence of acute intrathoracic disease. 2. Nonspecific nonobstructive bowel gas pattern. There is moderate fecal residue scattered throughout the colon. No significant change when compared to the prior study. 3. Postsurgical changes throughout the lower abdomen and pelvis. 00:25 Differential Diagnosis altered mental status, sepsis, flu, Constipation . bowel sp4 obstruction . Consideration of Admission/Observation Escalation of care including admission/observation considered. ED course: Patient x-ray today reveals no evidence of bowel obstruction, but significant amount of stool in the colon. And postsurgical changes in the lower abdomen and pelvis. Surgical clips present there. Patient at this time has failed outpatient management with lactulose, azithromycin, docusate, magnesium citrate. Also enema did not produce desirable results . At this time will prescribe GoLytely 1 gallon preferably pineapple flavored. Will advise also clear liquid diet for 24 hours. Refer to local assurance specialist Dr. Martínez for further examination. . 07/02 22:38 Order name: CBC with Diff; Complete Time: 00:27 sp4 07/02 22:38 Order name: CMP; Complete Time: 00:44 sp4 07/02 22:38 Order name: Lipase; Complete Time: 00:44 sp4 07/02 22:38 Order name: Urinalysis w/ reflexes; Complete Time: 00:14 sp4 07/02 23:09 Order name: Abdomen Acute Series XRAY sp4 07/02 22:38 Order name: IV Saline Lock; Complete Time: 23:34 sp4 07/02 22:38 Order name: Labs collected and sent; Complete Time: 23:34 sp4 Administered Medications: 00:26 Drug: Dicyclomine PO 20 mg PO once Route: PO; km8 00:55 Follow up: Response: No adverse reaction [facility] 00:26 Drug: MetoCLOPramide PO 10 mg PO once Route: PO; km8 00:55 Follow up: Response: No adverse reaction 8 Disposition Summary: 07/03/23 00:48 Discharge Ordered Problem: new sp4 Symptoms: have improved sp4 Condition: Stable sp4 Diagnosis - Slow transit constipation sp4 - Obstipation sp4 Followup: sp4 - With: Daniel Martínez MD - When: 10 - 14 days - Reason: Recheck today's complaints Discharge Instructions: - Discharge Summary Sheet sp4 - Clear Liquid Diet, Adult, [place] sp4 Forms: - Patient Portal Instructions sp4 Prescriptions: - Golytely 236-22.74-6.74 -5.86 gram Oral Recon Soln - take 236 milliliter ORAL route every 15 minutes Drink 8 oz or one cup every 10 sp4 minuntes until fecal effluent is clear, Dispense 1 container with powdered solution; 4000 milliliter; Refills: 0, Product Selection Permitted Signatures: Dispatcher [employer] Ector Rosa MD MD sp4 Valentina Joy RN RN km8 Stephan Martinez RN RN tl4
[2023-07-03 01:24] VITALS: BP 137/78; TEMP 98.5; O2SAT 100
--- NOTE | 2023-07-03 12:39 | RAD REPORT ---
EXAM DESCRIPTION: RAD - Abdomen Acute Series - 07/02/2023 11:37 pm CLINICAL HISTORY: 63 years Female CONSTIPATION TECHNIQUE: Three x-ray images of the chest and abdomen were performed including a PA radiograph of t he chest as well as supine and upright views of the abdomen. This study was performed on 07/02/2023 at 11:22 PM. Comparison: Abdomen x-ray performed on 07/01/2023 and chest x-ray performed on 07/01/[address] abdomen and pelvis performed on 07/01/2023. FINDINGS: The lungs are well expanded. The cardiac silhouette is within normal limits. There is no f ocal consolidation, pleural effusion or pneumothorax. The costophrenic sulci are clear. The bowel gas pattern is nonspecific and nonobstructive. There is moderate fecal residue scattered th roughout the colon. There are extensive postsurgical changes throughout the lower abdomen and pelvis. There is no evidence of free air or significant air-fluid levels. No pathologic abdominal calcificat ions are identified. No focal soft tissue abnormalities are seen. IMPRESSION: 1. No evidence of acute intrathoracic disease. 2. Nonspecific nonobstructive bowel gas pattern. There is moderate fecal residue scattered througho ut the colon. No significant change when compared to the prior study. 3. Postsurgical changes throughout the lower abdomen and pelvis. 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 The interpreting r adiologist is fully responsible for the content of the report.
== END 2023-07-03 01:06 | disposition home or self-care (01) ==
LOC: ER 22:26
DX: K59.01 Slow transit constipation (principal); Z85.42 Personal history of malignant neoplasm of other parts of uterus
CPT/HCPCS: 36415; 74022; 80053; 81003; 83690; 85025; 99284